=== PATIENT | female | born 1985 ===

== ENCOUNTER → 2017-05-15 | Emergency (ER) | payer OTHER | END | disposition home or self-care (01) | LOC: ER 09:31 | DX: B34.9 Viral infection, unspecified (principal) ==

== ENCOUNTER 2022-03-07 18:31 | Emergency (ER) | payer OTHER ==
[~2022-03-07] VITALS: Ht 167.6 cm; Wt 77.1 kg
[2022-03-07] MEDS ORDERED: BACTRIM DS TAB1 EACH PO (23:00)
== END 2022-03-07 23:23 | disposition home or self-care (01) ==
LOC: ER 18:31
DX: N39.0 Urinary tract infection, site not specified (principal)